=== PATIENT | female | born 1970 | race Caucasian/White ===

== ENCOUNTER 2023-12-19 08:26 | Emergency (ER) | payer BC, SELFPAY ==
[2023-12-19 08:29] VITALS: BP 204/126
[2023-12-19 08:40] VITALS: BMI 38.5
[2023-12-19 08:49] VITALS: BP 180/91
[2023-12-19 09:00] VITALS: BP 175/89
[2023-12-19 09:03] LABS: % Basophils 1.1 % (0-2); % Eosinophils 1.8 % (0-6); % Immature Granulocytes 0.3 % (0-0.5); % Lymphocytes 34.1 % (20.5-51.1); % Monocytes 7.1 % (1.7-9.3); % Neutrophils 55.6 % (42.2-75.2); Absolute Basophils 0.1 10^3/uL (0-0.2); Absolute Eosinophils 0.1 10^3/uL (0-0.7); Absolute Lymphocytes 2.1 10^3/uL (1.2-3.4); Absolute Monocytes 0.4 10^3/uL (0.1-0.6); Absolute Neutrophils 3.5 10^3/uL (1.4-6.5); Hematocrit 40.1 % (37.0-47.0); Mean Corp Hgb Conc. 34.9 g/dL (33.0-37.0); Mean Corpuscular Hgb 30.6 pg (27.0-31.0); Mean Corpuscular Volume 87.6 fL (81.0-99.0); Mean Platelet Volume 10.1 fL (7.4-10.4); Nucleated Red Blood Cells % 0 %; Platelet Count 278 10^3/uL (130-400); Red Blood Cell Count 4.58 10^6/uL (4.20-5.40); Red Cell Dist. Width 12.5 % (11.5-14.5); White Blood Cell Count 6.2 10^3/uL (4.8-10.8)
[2023-12-19 09:13] LABS: Urine Albumin Negative (Neg - Trace); Urine Bilirubin Negative (Negative); Urine Character Clear (Clear); Urine Color Yellow; Urine Glucose Negative (Negative); Urine Ketone Negative (Negative); Urine Leukocyte 2+ (Negative); Urine Nitrite Negative (Negative); Urine Occult Blood Negative (Negative); Urine Urobilinogen Negative (Neg - 1+); Urine pH 6.5 (5.0-9.0)
--- NOTE | 2023-12-19 09:16 | ED.GENMED ---
History of Present Illness
General
Chief Complaint: Heart Rate Problem
Time Seen by Provider: 12/19/23 08:37
History of Present Illness
History of Present Illness:
53-year-old female presents to the emergency department for evaluation of intermittent palpitations ongoing for the past 5 days. Symptoms are random and seemingly unprovoked. She denies any shortness of breath or chest pain along with the
symptoms. She was able to walk for nearly 1 hour yesterday outside without any reprovocation of symptoms. Currently asymptomatic. Denies fevers, chills, sweats. Denies any recent medication change but does allude to the fact that she has a
history of hypothyroidism and recently lost 20 pounds thus is concerned that she could be experiencing a iatrogenic hyperthyroidism
Past History
Past History
ED Past Medical History: Other (Hypothyroidism on replacement)
Social History
Tobacco: Non-smoker
Alcohol: Occasional
Drug: None
Personal:
Living: with family
Employment: Employed
Family History
Family History: Hypertension and Other (Dad with kidney disease)
Review of Systems
Review of Systems
Allergies reviewed?: Yes
All Other Systems: ROS reviewed and negative except as documented in HPI and ROS
Phy Exam
Physical Exam
Physical Exam:
GEN: Well appearing, NAD, WDWN
HEENT: Oral mucosa moist, no scleral icterus
Cardiac: Mildly tachycardic rate and regular rhythm, no murmurs
Lung: No respiratory distress, no tachypnea, lungs clear to auscultation
MSK: No gross deformity or injuries
Skin: Good color, no pallor or jaundice, no rashes
Neuro: AO x3, moves all extremities freely
Psych: Calm, cooperative
Course
Orders/Labs/Results
Orders:
Orders
12/19/23 08:28
EKG [Electrocardiogram (*1)] Urgent
Reason for Study: Palpitations
EKG- Treatment ONCE
12/19/23 08:50
Complete Blood Count/With Diff Urgent
Comprehensive Metabolic Panel Urgent
Lipase Urgent
TSH Reflex To Free T4 Urgent
Troponin I Urgent
Urinalysis Reflex To Culture Urgent
Date Specimen was Collected: 12/19/23
Time Specimen was Collected: 08:44
Urine Microscopic Reflex Cult Urgent
Urine Culture Urgent
CRUZITO Source: U
Specimen Description:
Date Specimen was Collected: 12/19/23
Time Specimen was Collected: 08:44
Abnormal Lab Results
12/19/23
08:50
Glucose 107 H mg/dl
(70-99)
Leukocyte Esterase Rfl 2+ A
(Negative)
Urine RBC 3-6 A /HPF
(0-2)
Urine WBC (Reflex) 11-15 A /HPF
(0-5)
Urine Bacteria (Reflex) Few A
(Negative)
12/19/23 08:50
12/19/23 08:50
Vital Signs
Initial and Last Documented VS:
Initial Vital Signs
Temp Pulse Resp BP Pulse Ox
98.7 F 118 16 204/126 97
12/19/23 08:29 12/19/23 08:29 12/19/23 08:29 12/19/23 08:29 12/19/23 08:29
Last Documented Vital Signs
Temp Pulse Resp BP Pulse Ox
98.7 F 76 14 183/86 99
12/19/23 08:29 12/19/23 10:01 12/19/23 10:01 12/19/23 10:01 12/19/23 10:01
MDM/Problems Addressed
MDM/Problems Addressed:
Patient's workup is unremarkable and telemetry monitoring shows no cardiac abnormalities. Interestingly she has findings of urinary tract infection and notes that she had similar palpitations 2 months ago when she was diagnosed with a UTI.
Certainly hard to draw a correlation between these 2 abnormalities however we will treat with nitrofurantoin
Comment
Comment:
EKG independently interpreted by me shows a slight sinus tachycardia with no concerning ST changes
*Critical Care Note
Total Time (30-74mins, 75-104mins- exclusive of procedures): Not Applicable
ED Attending Note
-
Portions of this chart may have been created with voice recognition software.� Occasional wrong word or��sound alike� substitutions may have occurred due to the inherent limitations of voice recognition software.
Discharge Plan
Departure
Patient Disposition: Home (Routine Discharge)
Date of Disposition: 12/19/23
Time of Disposition: 09:59
Patient with high blood pressure during this ER visit?: No
Discharge Problem:
Heart palpitations, Acute cystitis
Instructions: Palpitations (DC)
Prescriptions:
New
nitrofurantoin macrocrystal 100 mg capsule
100 mg PO BID 5 Days Qty: 10 0RF
No Action
levothyroxine 125 MCG tablet
125 mcg PO DAILY
sertraline 50 MG tablet
50 mg PO DAILY
valacyclovir [Valtrex] 1,000 MG tablet
1,000 mg PO TID Qty: 21 0RF
prednisone 50 MG tablet
50 mg PO DAILY Qty: 7 0RF
Referrals:
Jade Haji PA [Family Provider] -
Interventions
Interventions:
*Risk Screen - Suicide Last Done: 12/19/23 08:29
*General Assessment Last Done: 12/19/23 08:29
*Neglect/Abuse Screening Last Done: 12/19/23 08:29
ED- Fall Risk Assessment Last Done: 12/19/23 09:08
*ED COVID-19 Vaccine History Last Done: 12/19/23 10:08
*Nursing Disposition Last Done: 12/19/23 10:08
ED- Cardiac Assessment Last Done: 12/19/23 09:08
ED- Pulmonary Assessment Last Done: 12/19/23 09:08
Discharge Date and Time
Discharge Date/Time: 12/19/23 10:19
Print Language: ARABIC
[2023-12-19 09:17] LABS: ALT (SGPT) 21 U/L (0-35); AST (SGOT) 29 U/L (14-36); Albumin 4.6 g/dl (3.5-5.0); Alkaline Phosphatase 87 U/L (38-126); Blood Urea Nitrogen 17 mg/dl (7-17); Calcium 9.4 mg/dl (8.4-10.2); Carbon Dioxide 28 mmol/L (22-30); Chloride 106 mmol/L (98-107); Estimated Creatinine Clearance 92 ml/min; Glucose 107 mg/dl (70-99); Lipase 72 U/L (23-300); Potassium 3.8 mmol/L (3.5-5.1); Sodium 141 mmol/L (135-145); Total Bilirubin 1.2 mg/dl (0.2-1.3); Total Protein 7.6 g/dl (6.3-8.2); eGFR > 60.00
[2023-12-19 09:28] LABS: Troponin I < 0.012 ng/ml
[2023-12-19 09:47] LABS: TSH Reflex To Free T4 2.52 uIU/ml (0.47-4.68)
[2023-12-19 09:56] LABS: Urine Bacteria Few (Negative)
[2023-12-19 10:01] VITALS: BP 183/86
== END 2023-12-19 10:19 | disposition home or self-care (01) ==
LOC: EMR 08:26
PROVIDERS: Physician Assistant; EMERGENCY PHYSICIAN Emergency Medicine; FAMILY PHYSICIAN Physician Assistant Medical
DX: R00.2 Palpitations (principal); N30.00 Acute cystitis without hematuria
CPT/HCPCS: 99284; 80053; 81003; 81015; 83690; 84443; 84484; 85025; 87086; 93005

== ENCOUNTER → 2024-11-02 08:03 | Outpatient (REF) | payer BC, SELFPAY | LOC: RCS 08:03 | PROVIDERS: ATTENDING PHYSICIAN Physician Assistant Medical | DX: R00.2 Palpitations (principal) | CPT/HCPCS: 93225; 93226 ==